=== PATIENT | female | born 1945 | race Caucasian/White ===

== ENCOUNTER 2016-04-13 13:51 | Emergency (ER) | payer OTHER ==
[2016-04-13 14:26] VITALS: RESP 18
--- NOTE | 2016-04-13 15:15 | UCPHY ---
[id number] 14:41 HPI/ROS: CHIEF COMPLAINT: Nasal congestion, feeling panicky HISTORY OF PRESENT ILLNESS: 71-year-old female presents to urgent care by private vehicle complaining of nasal congestion over last few days and having trouble sleeping. Patient has history of bronchitis and was started on antibiotics over 1 week ago. The patient states that the cough has greatly improved although she still continues to have nasal congestion. The congestion in her nose is keeping her up at night and she feels like she can't breathe. Patient is scheduled to have surgery on a lung mass that was found recently. The patient is feeling anxious about that. She has no pain in her chest. She has no difficulty breathing in her chest. She just has the nasal congestion as mentioned above. No fevers or chills. No other symptoms. No neck pain. REVIEW OF SYSTEMS: Constitutional: No fever, no chills. Eyes: No double or blurry vision. ENT: Nasal congestion as noted above. No sore throat. Respiratory: No cough, no shortness of breath. Cardiac: No chest pain. Gastrointestinal: No abdominal pain, vomiting or diarrhea. Genitourinary: No dysuria. Musculoskeletal: No neck or back pain. Skin: No rashes. Neurological: No headache. (Mel Bullard) Past Medical/Surgical History: Hypertension, dyslipidemia, lung mass scheduled for surgery April 19, 2016 ( Mel Bullard) Social History: (Mel Bullard) Physical Exam: General Appearance: Alert, no distress. Afebrile. Eyes: Pupils equal and round. Extraocular motions are all intact. ENT: Mouth: Mucous membranes moist. Respiratory: No wheezing, rhonchi, or rales, lungs are clear to auscultation. Cardiovascular: Regular rate and rhythm. Gastrointestinal: Abdomen is soft and nontender, no masses, no rebound or guarding, bowel sounds normal. Neurological: Alert and oriented x 3, cranial nerves II through XII grossly intact Skin: Warm and dry, no rashes. Musculoskeletal: Nontender to palpate along the cervical, thoracic or lumbar spine. Neck is supple. Extremities: Full range of motion and no peripheral edema. Psychiatric: Patient is oriented X 3, there is no agitation. (Mel Bullard) Constitutional: Initial Vital Signs Temperature (C) 36.8 C 04/13/16 14:23 Heart Rate 76 04/13/16 14:23 Respiratory Rate 18 04/13/16 14:23 Blood Pressure 142/96 H 04/13/16 14:23 O2 Sat (%) 98 04/13/16 14:23 O2 Delivery Mode Room Air Allergies/Adverse Reactions: acetaminophen [From Vicodin] Allergy (Verified 04/13/16 14:21) hydrocodone bitartrate [From Vicodin] Allergy (Verified 04/13/16 14:21) pseudoephedrine HCl [From Sudafed] Allergy (Verified 04/13/16 14:21) Home Medications: Medication Instructions Recorded Atorvastatin Calcium 04/13/16 Valsartan 04/13/16 Medical Decision Making ED Course/Re-evaluation: 71-year-old female presents with concerns about nasal congestion and having difficulty sleeping. The patient has a history of not tolerating Sudafed well. She has been taking [id number] Mucinex Sinus which contained phenylephrine. It was explained to the patient that the phenylephrine in her sinus medication is likely what is making her feel very anxious and panicky. She was discouraged from continuing this medication. I encouraged her to use plain Mucinex. I also encouraged her to use Afrin nasal spray and use breathe right strips at bedtime. She will continue her Flonase nasal spray. She will discontinue any decongestants. I also encouraged her to use Benadryl which she has used in the past to help her sleep at night. She will keep her scheduled appointment with her surgeon on April 18 and she was encouraged to return if she has any other concerns. She was comfortable with this plan. (Mel Bullard) Urgent Care PA supervision Physician documentation: The patient was evaluated and managed by the physician assistant store manager operations. My co- signature indicates that I have reviewed this chart and I agree with the findings and plan of care as documented. I am the secondary supervising physician. (Kale Smith) Differential Diagnosis: Including but not limited to viral upper respiratory infection, sinusitis, bronchitis, pneumonia, influenza (Mel Bullard) Departure - Departure Disposition: Home, Routine, Self-Care Clinical Impression: Nasal congestion, Insomnia Condition: Good Instructions: Cold Symptoms (ED), Insomnia (ED) Additional Instructions: Mucinex, guaifenesin, 600-1200 mg twice daily with a large amount of water to help relieve congestion. Afrin nasal spray at bedtime for the next 2-3 nights as needed for nasal congestion. You may also apply a nasal lubricant which is [id number]-njismin during the daytime to help prevent a nose bleed. "Breathe rite" nasal strips to help relieve congestion where sleeping. Benadryl, diphenhydramine, 25 mg at bedtime to help you sleep. You may also try ktmj-eqt-zalamto 3 mg melatonin instead as a sleep aid. Do not take any medication that has a decongestant containing pseudoephedrine or phenylephrine. Keep scheduled appointment on April 18 with your surgeon. Return if you develop fever, shortness of breath, pain in her chest, or if you feel worse in any way. Referrals: Vivienne Chavez MD [Primary Care Provider] - As per Instructions - PQRS PQRS Measurement: 134: Depression screening and followup, PRIME MD-PHQ2 (12 years and older) Over the last 2 weeks, how often have you been bothered by any of the following problems? 1. Feeling down, depressed, or hopeless? 2. Little interest or pleasure in doing things? Patient answered no to both 1 and 2 130: Documentation of medications. Reviewed all patient medications, doses, route and frequency. 226: Do you smoke? No. 47: 65 and older: Advanced care planning. Patient designates surrogate decision maker as spouse. 51: 18 years old and older with diagnosis of COPD, spirometry performance. Patient has no history of COPD 52: 18 years old and older with COPD and symptoms of COPD or FEV1<60% predicted prescribed a B Agonist. Not applicable (Mel Bullard)
[2016-04-13 15:17] VITALS: BP 115/67; PULSE 82; TEMP 98.6; O2SAT 95
== END 2016-04-13 15:22 | disposition home or self-care (01) ==
LOC: CED 13:51
DX: R09.81 Nasal congestion (principal); G47.00 Insomnia, unspecified; I10 Essential (primary) hypertension; R91.8 Other nonspecific abnormal finding of lung field
CPT/HCPCS: 99213-PO; G0463-PO

== ENCOUNTER → 2017-06-22 | Outpatient (CLI) | payer OTHER | LOC: BMCIMAGING 11:21 | PROVIDERS: ATTEND Podiatrist Foot & Ankle Surgery | DX: M20.11 Hallux valgus (acquired), right foot (principal); M20.12 Hallux valgus (acquired), left foot; M84.872 Other disorders of continuity of bone, left ankle and foot; M77.31 Calcaneal spur, right foot ==

== ENCOUNTER → 2017-07-06 | Outpatient (CLI) | payer OTHER | LOC: BRMIMAGING 10:52 | PROVIDERS: ATTEND Internal Medicine | DX: Z13.820 Encounter for screening for osteoporosis (principal); Z78.0 Asymptomatic menopausal state ==